=== PATIENT | female | born 1980 | race Caucasian/White ===

== ENCOUNTER 2021-08-13 14:49 | Outpatient (CLI) | payer OTHER, SELFPAY ==
--- NOTE | 2021-08-13 15:00 | CRLHL7_ITS ---
For Patients: As a result of the Century Cures Act, medical imaging exams and procedure reports are released immediately into your electronic medical record. You may view this report before your referring provider. If you have questions, please contact your health care provider. BILATERAL MAMMOGRAM WITH COMPUTER-AIDED DETECTION TECHNIQUE: CC and MLO views were obtained. These mammographic images have been obtained using full-field digital technique. These mammographic images were interpreted with the benefit of computer-aided detection. COMPARISON FILM: Baseline, no priors available. FINDINGS: The breasts are heterogeneously dense, which may obscure small masses IMPRESSION: There is no radiographic evidence for malignancy. ASSESSMENT: BI-RADS Category 1: Negative RECOMMENDATION: Routine screening mammogram in 1 year. A lay language report of this examination will be provided to the patient. Michael Hart M.D. Diagnostic Radiologist [email or web address] JULIO/Dictated by: Michael Hart MD @ 08/16/2021 8:38:00 AM (Electronically Signed)
== END 2021-08-13 14:50 | disposition home or self-care (01) ==
LOC: MAMMO 14:50
PROVIDERS: PCP Physician Assistant Medical; Visit Provider Physician Assistant Medical
DX: Z12.31 Encounter for screening mammogram for malignant neoplasm of breast (principal)
CPT/HCPCS: 77063; 77067

== ENCOUNTER 2022-09-06 13:06 | Outpatient (CLI) | payer OTHER, SELFPAY ==
--- NOTE | 2022-09-06 13:20 | CRLHL7_ITS ---
For Patients: As a result of the Century Cures Act, medical imaging exams and procedure reports are released immediately into your electronic medical record. You may view this report before your referring provider. If you have questions, please contact your health care provider. BILATERAL SCREENING MAMMOGRAM WITH COMPUTER-AIDED DETECTION TECHNIQUE: CC and MLO views were obtained. These mammographic images have been obtained using full-field digital technique. These mammographic images were interpreted with the benefit of computer-aided detection. COMPARISON FILM: 08/13/21. FINDINGS: The breasts are heterogeneously dense, which may obscure small masses. IMPRESSION: There is no radiographic evidence for malignancy. ASSESSMENT: BI-RADS Category 1: Negative RECOMMENDATION: Routine screening mammogram in 1 year. A lay language report of this examination will be provided to the patient. Michael Hart M.D. Diagnostic Radiologist [email or web address] PRIMO/[email or web address] PT/Dictated by: Michael Hart MD @ 09/07/2022 11:44:00 AM (Electronically Signed)
== END 2022-09-06 13:07 | disposition home or self-care (01) ==
PROVIDERS: PCP Physician Assistant Medical; Visit Provider Physician Assistant Medical
DX: Z12.31 Encounter for screening mammogram for malignant neoplasm of breast (principal); R92.2 Inconclusive mammogram
CPT/HCPCS: 77067

== ENCOUNTER 2023-04-10 11:12 | Outpatient (CLI) | payer OTHER, SELFPAY | END 2023-04-10 11:13 | disposition home or self-care (01) | LOC: LKVREF 11:13 | PROVIDERS: PCP Physician Assistant Medical; Visit Provider Physician Assistant | DX: Z13.220 Encounter for screening for lipoid disorders (principal) | CPT/HCPCS: 80061 ==

== ENCOUNTER 2023-11-17 15:03 | Outpatient (CLI) | payer OTHER, SELFPAY ==
--- NOTE | 2023-11-17 15:20 | CRLHL7_ITS ---
For Patients: As a result of the Cures Act, medical imaging exams and procedure reports are released immediately into your electronic medical record. You may view this report before your referring provider. If you have questions, please contact your health care provider. BILATERAL SCREENING MAMMOGRAM WITH COMPUTER-AIDED DETECTION AND TOMOSYNTHESIS TECHNIQUE: CC and MLO views were obtained. These mammographic images have been obtained using full-field digital technique. These mammographic images were interpreted with the benefit of computer-aided detection. Breast Tomosynthesis was used in this interpretation. COMPARISON FILM: 09/06/22, 08/13/21. FINDINGS: The breasts are heterogeneously dense, which may obscure small masses IMPRESSION: There is no radiographic evidence for malignancy. ASSESSMENT: BI-RADS Category 1: Negative RECOMMENDATION: Routine screening mammogram in 1 year. A lay language report of this examination will be provided to the patient. Michael Hart M.D. Diagnostic Radiologist [email or web address] PRIMO/[email or web address] Transcribed: 3:36 p.mAshley mejia/Dictated by: Michael Hart MD @ 11/27/2023 9:14:00 AM (Electronically Signed)
== END 2023-11-17 15:04 | disposition home or self-care (01) ==
LOC: MAMMO 15:04
PROVIDERS: PCP Physician Assistant Medical; Visit Provider Physician Assistant Medical
DX: Z12.31 Encounter for screening mammogram for malignant neoplasm of breast (principal); R92.333 Mammographic heterogeneous density, bilateral breasts
CPT/HCPCS: 77063; 77067

== ENCOUNTER 2024-07-29 08:36 | Outpatient (CLI) | payer OTHER, SELFPAY ==
--- NOTE | 2024-07-29 09:53 | P.ANES_ITS ---
Anesthesia Charges Start Date/Time Anesthesia Start Date: 07/29/24 Anesthesia Start Time: 09:31 Stop Date/Time Anesthesia Stop Date: 07/29/24 Anesthesia Stop Time: 09:53 Coding CPT Codes CPT Codes: ELIZ LWR INTST SCR COLSC - 83764 ([id number]) QK - ELECTROMECHANICAL EQUIPMENT ASSEMBLER 2-4 CNCRNT ANES PROC, QX - TISSUE TECHNICIAN SVC W/ MED DIRECTION, P1 - NORMAL HEALTHY PATIENT
--- NOTE | 2024-07-29 09:53 | W.ANESCHARGE ---
Anesthesia Charges Start Date/Time Anesthesia Start Date: 07/29/24 Anesthesia Start Time: 09:31 Stop Date/Time Anesthesia Stop Date: 07/29/24 Anesthesia Stop Time: 09:53 Coding CPT Codes CPT Codes: ELIZ LWR INTST SCR COLSC - 47728 ([id number]) QK - VETERINARY PRACTITIONER 2-4 CNCRNT ANES PROC, QX - DIRECT MARKETING EXECUTIVE SVC W/ MED DIRECTION, P1 - NORMAL HEALTHY PATIENT
--- NOTE | 2024-07-29 09:58 | P.ANES_ITS ---
Anesthesia Charges Start Date/Time Anesthesia Start Date: 07/29/24 Anesthesia Start Time: 09:31 Stop Date/Time Anesthesia Stop Date: 07/29/24 Anesthesia Stop Time: 09:53 Coding CPT Codes CPT Codes: ELIZ LWR INTST SCR COLSC - 68780 ([id number]) P1 - NORMAL HEALTHY PATIENT, QX - HOSPITALITY RECRUITER SVVikas W/ MED DIRECTION, QK - PROVIDER EDUCATION SPECIALIST 2-4 CNCRNT ANEFarzaneh PROC
--- NOTE | 2024-07-29 09:58 | W.ANESCHARGE ---
Anesthesia Charges Start Date/Time Anesthesia Start Date: 07/29/24 Anesthesia Start Time: 09:31 Stop Date/Time Anesthesia Stop Date: 07/29/24 Anesthesia Stop Time: 09:53 Coding CPT Codes CPT Codes: ELIZ LWR INTST SCR COLSC - 97715 ([id number]) P1 - NORMAL HEALTHY PATIENT, QX - TELEPHONE STERILIZER SVVikas W/ MED DIRECTION, QK - CONSTRUCTION EQUIPMENT MECHANIC 2-4 CNCRNT ANEFarzaneh PROC
== END 2024-07-29 09:27 | disposition home or self-care (01) ==
PROVIDERS: PCP Physician Assistant Medical; Visit Provider Surgery
DX: Z12.11 Encounter for screening for malignant neoplasm of colon (principal)
CPT/HCPCS: 00812; 45378; J2704

== ENCOUNTER 2024-11-22 07:59 | Outpatient (CLI) | payer OTHER, SELFPAY ==
--- NOTE | 2024-11-22 08:15 | CRLHL7_ITS ---
For Patients: As a result of the Century Cures Act, medical imaging exams and procedure reports are released immediately into your electronic medical record. You may view this report before your referring provider. If you have questions, please contact your health care provider. INDICATION: BILATERAL SCREENING MAMMOGRAM, ASYMPTOMATIC 44 Y/O FEMALE COMPARISON: 11/17/2023, 09/06/2022, 08/13/2021 TECHNIQUE: Digital mammogram in CC and MLO projections including computer-aided detection (CAD) and tomosynthesis. BREAST COMPOSITION: The breasts are heterogeneously dense, which may obscure small masses. FINDINGS: No suspicious findings. ASSESSMENT: BI-RADS 1 Negative RECOMMENDATION: Annual screening mammogram. A lay language report of this examination will be provided to the patient. Dictated by: Michael Hart MD @ 11/25/2024 08:59:16 (Electronically Signed)
== END 2024-11-22 08:00 | disposition home or self-care (01) ==
LOC: MAMMO 08:00
PROVIDERS: PCP Physician Assistant Medical; Visit Provider Physician Assistant
DX: Z12.31 Encounter for screening mammogram for malignant neoplasm of breast (principal); R92.333 Mammographic heterogeneous density, bilateral breasts
CPT/HCPCS: 77063; 77067